=== PATIENT | female | born 1945 | race American Indian/Alaskan Native ===

== ENCOUNTER 2018-01-28 14:34 | Emergency (ER) | payer MEDICARE ==
--- NOTE | 2018-01-28 14:47 | Emergency Department Report ---
ED Neuro Deficit HPI - General Stated Complaint: POSS STROKE Time Seen by Provider: 01/28/18 14:40 Source: patient, family, EMS - History of Present Illness Initial Comments: Patient is 72 years old female with history of multiple strokes before. Patient brought to the emergency department via EMS as a code stroke. Symptoms started approximately 1330 this afternoon while patient is getting her nails done. Family stated that the patient started shaking and sweating and drooling saliva from her mouth with right facial drooping. Upon arrival to the emergency room patient is alert and oriented 3 was mild right facial drooping and saliva also. -: Sudden Time: 13:30 Location: speech, right face, altered Presenting Symptoms: Present: Facial Droop/Numbness, Altered Mental Status History of same: Yes - Related Data Allergies/Adverse Reactions: Allergies Allergy/AdvReac Type Severity Reaction Status Date / Time No Known Allergies Allergy Unverified 01/28/18 14:39 ED Review of Systems ROS: Stated complaint: POSS STROKE Other details as noted in HPI Comment: All other systems reviewed and negative Constitutional: denies: chills, fever Respiratory: denies: cough, orthopnea, shortness of breath, SOB with exertion Cardiovascular: denies: chest pain, palpitations, dyspnea on exertion Gastrointestinal: denies: abdominal pain, nausea, vomiting Neurological: denies: headache, numbness, paresthesias ED Neuro Physical Exam - General General appearance: alert, in no apparent distress Suspected Stroke: Yes - Head Head exam: Present: atraumatic, normocephalic, normal inspection - Eye Eye exam: Present: normal appearance, PERRL - ENT ENT exam: Present: normal exam, normal orophraynx, mucous membranes moist - Neck Neck exam: Present: normal inspection, full ROM. Absent: tenderness, meningismus, lymphadenopathy, thyromegaly - Respiratory Respiratory exam: Present: normal lung sounds bilaterally. Absent: respiratory distress, wheezes, rales, rhonchi, stridor, accessory muscle use, decreased breath sounds, prolonged expiratory - Cardiovascular Cardiovascular Exam: Present: regular rate, normal rhythm, normal heart sounds - GI/Abdominal GI/Abdominal exam: Present: soft, normal bowel sounds. Absent: distended, tenderness, guarding, rebound, rigid, organomegaly, mass, bruit, pulsatile mass - Extremities Exam Extremities exam: Present: normal inspection, full ROM, normal capillary refill - Back Exam Back exam: Present: normal inspection, full ROM. Absent: tenderness, CVA tenderness (R), CVA tenderness (L) - Neurological Exam Neurological exam: Present: alert, oriented X3, CN II-XII intact - NIHSS Assessment Interval: Baseline 1a. Level of Consciousness: alert 1b. LOC Questions: answers correctly 1c. LOC Commands: performs tasks correctly 2. Best Gaze: normal 3. Visual: no visual loss 4. Facial Palsy: minor paralysis 5b. Motor Arm Right: no drift 5a. Motor Arm Left: no drift 6a. Motor Leg Left: no drift 6b. Motor Leg Right: no drift 7. Limb Ataxia: absent 8. Sensory: normal 9. Best Language: no aphasia 10. Dysarthria: normal 11. Extinction/Inattention: no abnormality Total Score: 1 Stroke Severity: Minor Stroke - Skin Skin exam: Present: warm, intact, normal color ED Course - Reevaluation(s) Reevaluation #1: 01/28/18 15:02 I discussed the patient is Dr. Bravo, neurologist on-call, who examined the patient in the ER. He stated that patient is not a TPA candidate and this is most likely a TIA and patient is to be admitted for stroke workup. - Lab Data Result diagrams: 01/28/18 14:56 01/28/18 14:56 Lab Results 01/28/18 01/28/18 01/28/18 Range/Units 14:56 14:56 14:56 WBC 14.1 H (4.5-11.0) K/mm3 RBC 4.76 (3.65-5.03) M/mm3 Hgb 12.6 (10.1-14.3) gm/dl Hct 40.5 (30.3-42.9) % MCV 85 (79-97) fl MCH 27 L (28-32) pg MCHC 31 (30-34) % RDW 18.3 H (13.2-15.2) % Plt Count 383 (140-440) K/mm3 Lymph % (Auto) 22.0 (13.4-35.0) % Bowman % (Auto) 6.2 (0.0-7.3) % Eos % (Auto) 0.9 (0.0-4.3) % Baso % (Auto) 1.1 (0.0-1.8) % Lymph # 3.1 (1.2-5.4) K/mm3 Bowman # 0.9 H (0.0-0.8) K/mm3 Eos # 0.1 (0.0-0.4) K/mm3 Baso # 0.2 H (0.0-0.1) K/mm3 Seg Neutrophils % 69.8 (40.0-70.0) % Seg Neutrophils # 9.8 H (1.8-7.7) K/mm3 PT 23.7 H (12.2-14.9) Sec. INR 1.97 H (0.87-1.13) Thrombin Time 18.2 (15.1-19.6) Sec. Sodium 139 (137-145) mmol/L Potassium 3.6 (3.6-5.0) mmol/L Chloride 98.5 (98-107) mmol/L Carbon Dioxide 21 L (22-30) mmol/L Anion Gap 23 mmol/L BUN 21 H (7-17) mg/dL Creatinine 0.6 L (0.7-1.2) mg/dL Estimated GFR > 60 ml/min BUN/Creatinine Ratio 35 % Glucose 101 H (65-100) mg/dL Calcium 9.2 (8.4-10.2) mg/dL - EKG Data -: EKG Interpreted by Fl EKG shows normal: sinus rhythm Rate: normal Interpretation: no acute changes - Radiology Data Radiology results: report reviewed Referring Physician: LUNA HICKMAN Patient Name: YNES ANDERSON Date of : 1945 Sex: Female Report Date: 2018-01-28 Report Status: Finalized Findings [facility] [address] [place] [address] Cat Scan Report Signed Patient: YNES ANDERSON MR#: [id number] : 1945 Acct:[id number] Age/Sex: 72 / F ADM Date: 01/28/18 Loc: ED Attending Dr: Ordering Physician: LUNA HICKMAN Date of Service: 01/28/18 Procedure(s): CT head/brain wo con Accession Number(s): [id number] cc: LUNA HICKMAN FINAL REPORT EXAM: CT HEAD/BRAIN WO CON HISTORY: neuro deficits lt; 6hrs or sx present upon awakening TECHNIQUE: CT examination of the head without IV contrast PRIORS: None. FINDINGS: No acute air-fluid level visualized in the included air-filled sinuses. Bone windows demonstrate no acute fracture. There is ventricular and sulcal prominence compatible with global cerebrocortical atrophy. Low attenuation regions in the cerebral white matter, while nonspecific, are present and usually attributed to chronic ischemic gliosis. It can occur secondary to the normal aging process, hypertension, or arterial sclerotic vascular disease. The differential includes demyelination in the appropriate clinical setting. The brain contains no mass, mass effect, hemorrhage, or acute infarct. There is no extra-axial intracranial bleed or brain bleed. There is no midline shift. IMPRESSION: No acute CVA, intracranial bleed, or brain mass [employer] windows desktop support verbally gave report to Dr Hickman on 01/28/2018 at 2:53 p.m. EST Transcribed By: CORBIN Dictated By: YEE ZAMBRANO MD Electronically Authenticated By: YEE ZAMBRANO MD Signed Date/Time: 01/28/181456 DD/ 56 TD/TT: 01/28/181456 - Medical Decision Making Discussed the patient is Dr. Pena, he agreed to admit the patient to service. Critical care attestation.: If time is entered above; I have spent that time in minutes in the direct care of this critically ill patient, excluding procedure time. ED Disposition Clinical Impression: Stroke, TIA (transient ischemic attack) Disposition: OP ADMIT IP TO THIS HOSP Is pt being admited?: Yes Condition: Stable Referrals: PRIMARY CARE, [Primary Care Provider] - 3-5 Days
--- NOTE | 2018-01-28 15:01 | Cat Scan Report ---
FINAL REPORT EXAM: CT HEAD/BRAIN WO CON HISTORY: neuro deficits < 6hrs or sx present upon awakening TECHNIQUE: CT examination of the head without IV contrast PRIORS: None. FINDINGS: No acute air-fluid level visualized in the included air-filled sinuses. Bone windows demonstrate no acute fracture. There is ventricular and sulcal prominence compatible with global cerebrocortical atrophy. Low attenuation regions in the cerebral white matter, while nonspecific, are present and usually attributed to chronic ischemic gliosis. It can occur secondary to the normal aging process, hypertension, or arterial sclerotic vascular disease. The differential includes demyelination in the appropriate clinical setting. The brain contains no mass, mass effect, hemorrhage, or acute infarct. There is no extra-axial intracranial bleed or brain bleed. There is no midline shift. IMPRESSION: No acute CVA, intracranial bleed, or brain mass [employer] business support coordinator verbally gave report to Dr Stone on 01/28/2018 at 2:53 p.m. EST
[2018-01-28 15:30] LABS: Basophils # (Auto) 0.2 K/mm3 (0.0-0.1); Basophils % (Auto) 1.1 % (0.0-1.8); Eosinophils # (Auto) 0.1 K/mm3 (0.0-0.4); Eosinophils % (Auto) 0.9 % (0.0-4.3); Hematocrit 40.5 % (30.3-42.9); Hemoglobin 12.6 gm/dl (10.1-14.3); Lymphocytes # (Auto) 3.1 K/mm3 (1.2-5.4); Mean Corpuscular HGB Conc 31 % (30-34); Mean Corpuscular Hemoglobin 27 pg (28-32); Mean Corpuscular Volume 85 fl (79-97); Monocytes # (Auto) 0.9 K/mm3 (0.0-0.8); Monocytes % (Auto) 6.2 % (0.0-7.3); Platelet Count 383 K/mm3 (140-440); Red Blood Count 4.76 M/mm3 (3.65-5.03); Red Cell Distribution Width 18.3 % (13.2-15.2)
[2018-01-28 15:35] LABS: INR 1.97 (0.87-1.13); Thrombin Time 18.2 Sec. (15.1-19.6)
[2018-01-28 15:41] LABS: BUN/Creatinine Ratio 35; Blood Urea Nitrogen 21 mg/dL (7-17); Calcium 9.2 mg/dL (8.4-10.2); Hemolysis Index 10
[2018-01-28 18:13] VITALS: BP 127/71
--- NOTE | 2018-01-29 06:39 | Consultation ---
HISTORY OF PRESENT ILLNESS: This is a 72-year-old female who presents to the Emergency Room of [facility] as an emergency admission. This patient presents about 30 minutes prior to admission, she developed drooling, difficulty with balance and leaning over to the right. She has difficulty expressing herself at that point. She has had a known history of at least having 4 prior strokes. She was transferred to the hospital with a stroke alert. She has a prior medical history of being under management of her hypertension, diabetes. She was seen by the Emergency Room physician. He and I had a discussion; the patient's neurological status had subsequently improved and her stroke scale was 0. I have reviewed her CT scan personally. She has marked degree of white matter changes with evidence of ischemic white matter changes of both the right and left cerebral hemispheres bilaterally, frontally, and posteriorly, but also over the right than the left. I do not see an acute bleed. There is no mass effect, no swelling, no evidence of any prior tumors and I do not see any features that would suggest acute stroke. At this point, I do not see any acute bleed. Given the fact that the patient has had improvement of her neurological status, she clearly is not a TPA candidate. Also, she has had recent strokes, which are exclusion factors and I would not feel that TPA with the safe alternative at this point given the history of a recent stroke and appearance on the CT scan of probably recent acute stroke, which is subacute chronic stage. Examination shows no evidence of any hemiparesis. Cranial nerves are intact. She is slightly confused. It is a little difficulty to speech, orientation. Vital signs are stable. Blood pressure 115/80, pulse rate 80, respirations 18. IMPRESSION: Transient ischemic attack subsequent to acute stroke previously, prior history of hypertension, diabetes, history of multiple strokes. I would recommend admission, getting an MRI, full stroke workup including echocardiogram, carotid artery ultrasound, review of old records. JOB# [id number] DANNY/DANIEL
--- NOTE | 2018-01-29 08:35 | Event Note ---
Date: 01/28/18 Passed out at nail place after trauma to the nail bed Patient had extensive work up for recurrent syncopal episodes--Including event monitor Daughter feels it is vasovagal with which I concur Dis Dx Syncope-sec to vasovagal response to pain Cont Home meds F/u with pcp/Neuro (Patient has a neurologist))
--- NOTE | 2018-01-29 11:47 | Consultation ---
History of Present Illness Consult date: 01/29/18 History of present illness: please see my extensive dictated note from tuesday Medications and Allergies Allergies Allergy/AdvReac Type Severity Reaction Status Date / Time No Known Allergies Allergy Unverified 01/28/18 14:39 Physical Examination - Vital Signs Vital Signs: Vital Signs Temp Pulse Resp Pulse Ox 98.8 F 68 22 99 01/28/18 14:39 01/28/18 14:39 01/28/18 14:39 01/28/18 14:39 - Assessment Assessment Interval: Baseline - Level of Consciousness 1a. Level of Consciousness: alert - LOC Questions 1b. LOC Questions: answers correctly - LOC Command 1c. LOC Commands: performs tasks correctly - Best Gaze 2. Best Gaze: normal - Visual 3. Visual: no visual loss - Facial Palsy 4. Facial Palsy: minor paralysis - Motor Arm 5b. Motor Arm Right: no drift - Motor Leg 6a. Motor Leg Left: no drift - Limb Ataxia 7. Limb Ataxia: absent - Sensory 8. Sensory: normal - Best Language 9. Best Language: no aphasia - Dysarthria 10. Dysarthria: normal - Extinction and Inattention 11. Extinction/Inattention: no abnormality Results - Laboratory Findings CBC and BMP: 01/28/18 14:56 01/28/18 14:56 Abnormal Lab Findings: Abnormal Labs 01/28/18 01/28/18 01/28/18 14:56 14:56 14:56 WBC 14.1 H MCH 27 L RDW 18.3 H Gratiot # 0.9 H Baso # 0.2 H Seg Neutrophils # 9.8 H PT 23.7 H INR 1.97 H APTT 92.0 H* Carbon Dioxide 21 L BUN 21 H Creatinine 0.6 L Glucose 101 H
== END 2018-01-28 18:10 | disposition admitted as inpatient to this hospital (09) ==
LOC: ED 14:34 → UNDOADMIN 18:24 → 4A 18:24 → UNDODISIN 01-30 11:10
DX: G45.9 Transient cerebral ischemic attack, unspecified (principal); I10 Essential (primary) hypertension; E11.9 Type 2 diabetes mellitus without complications; R55 Syncope and collapse
CPT/HCPCS: 36415; 70450; 80048; 84484; 85025; 85610; 85670; 85730; 93005; 93010

== ENCOUNTER 2018-03-27 11:27 | Inpatient (IN) | payer MEDICARE ==
[2018-03-27] MEDS ORDERED: NACL 0.9% 1000 ML 1,000 ML IV ONE (12:48)
[2018-03-27 13:33] LABS: Hemoglobin 12.5 gm/dl (10.1-14.3); Mean Corpuscular HGB Conc 31 % (30-34); Mean Corpuscular Hemoglobin 26 pg (28-32); Mean Corpuscular Volume 85 fl (79-97); Platelet Count 386 K/mm3 (140-440); Red Cell Distribution Width 19.2 % (13.2-15.2)
[2018-03-27 13:34] LABS: Hematocrit 40.7 % (30.3-42.9)
--- NOTE | 2018-03-27 13:39 | Emergency Department Report ---
ED General Adult HPI - General Chief complaint: Syncope Stated complaint: SYNCOPE Time Seen by Provider: 03/27/18 12:45 Source: patient, family, EMS Mode of arrival: Stretcher Limitations: No Limitations - History of Present Illness Initial comments: 72-year-old female states she felt weak while sitting in a chair. She felt as though she was going to pass out. She started to experience lower abdominal pain and ultimately did have diarrhea. She went to the bathroom and sat on the commode. Then she her to the floor where her daughter witnessed her syncopal episode. They state that she has been diagnosed as having vasovagal syncope. However, the daughter clearly describes pill-rolling upward eye deviation and tonic if not clonic upper extremity arm movement. The daughter stated that she was "unconscious" she did have good respiratory effort and no apparent color change. Apparently she has had episodes like this in the past. She has not previously been diagnosed with seizures. However in 2017 she had a stroke causing a left hemiparesis. She has also had a previous cardiac catheterization which showed no need for cardiac stent the daughter states. She also states that she has had leg edema after the cardiac catheterization. The patient has returned to her neurological baseline. He complained of some lower abdominal discomfort. She is not nauseated now but had some nausea in the field. She did not vomit. She was not observed to have any bloody diarrhea. She was found by paramedics to have an initial systolic blood pressure of 86. -: Gradual Consistency: now resolved Associated Symptoms: denies other symptoms (some lower abdominal pain) - Related Data Allergies Allergy/AdvReac Type Severity Reaction Status Date / Time No Known Allergies Allergy Unverified 01/28/18 14:39 ED Review of Systems ROS: Stated complaint: SYNCOPE Other details as noted in HPI Constitutional: denies: chills, fever Eyes: denies: eye pain, eye discharge, vision change ENT: denies: ear pain, throat pain Respiratory: denies: cough, shortness of breath, wheezing Cardiovascular: syncope. denies: chest pain, palpitations Endocrine: no symptoms reported Gastrointestinal: abdominal pain, diarrhea. denies: nausea Genitourinary: denies: urgency, dysuria, discharge Musculoskeletal: denies: back pain, joint swelling, arthralgia Skin: denies: rash, lesions Neurological: as per HPI. denies: headache, weakness, paresthesias Psychiatric: denies: anxiety, depression Hematological/Lymphatic: denies: easy bleeding, easy bruising ED Past Medical Hx - Past Medical History Previous Medical History?: Yes Hx Hypertension: Yes Hx CVA: Yes Additional medical history: CVA x2, Afib. anxiety, high cholesterol - Surgical History Past Surgical History?: Yes Hx Cholecystectomy: Yes Additional Surgical History: hysterectomy, esophageal - Social History Smoking Status: Never Smoker ED Physical Exam - General Limitations: No Limitations General appearance: alert, in no apparent distress - Head Head exam: Present: atraumatic, normocephalic - Eye Eye exam: Present: normal appearance, PERRL, EOMI. Absent: scleral icterus - ENT ENT exam: Present: mucous membranes moist - Neck Neck exam: Present: normal inspection. Absent: tenderness, meningismus - Respiratory Respiratory exam: Present: normal lung sounds bilaterally. Absent: respiratory distress - Cardiovascular Cardiovascular Exam: Present: regular rate, normal rhythm. Absent: systolic murmur, diastolic murmur, rubs, gallop - GI/Abdominal GI/Abdominal exam: Present: soft, tenderness (mild discomfort to palpation), normal bowel sounds. Absent: distended, guarding, rebound, rigid - Extremities Exam Extremities exam: Present: normal inspection - Back Exam Back exam: Present: normal inspection - Neurological Exam Neurological exam: Present: alert, oriented X3, CN II-XII intact. Absent: motor sensory deficit - Psychiatric Psychiatric exam: Present: normal affect, normal mood - Skin Skin exam: Present: warm, dry, intact, normal color. Absent: rash ED Course Vital Signs 03/27/18 03/27/18 03/27/18 11:22 11:30 11:32 Temperature 97.7 F Pulse Rate 68 67 Respiratory 28 H 24 Rate Blood Pressure 114/64 114/64 114/64 O2 Sat by Pulse 95 94 Oximetry 03/27/18 03/27/18 03/27/18 12:00 12:30 13:00 Temperature Pulse Rate 68 70 73 Respiratory 25 H 25 H 16 Rate Blood Pressure 117/65 117/64 124/65 O2 Sat by Pulse 99 96 98 Oximetry 03/27/18 03/27/18 03/27/18 13:30 14:00 14:41 Temperature Pulse Rate 68 75 Respiratory 19 16 Rate Blood Pressure 121/70 111/71 111/71 O2 Sat by Pulse 97 97 92 Oximetry - Reevaluation(s) Reevaluation #2: CT studies were normal. I discussed the case with Dr. Pena. It would appear that the patient had a hypotensive episode. It would also appear that she had a subsequent seizure. I discussed giving Keppra to the patient with Dr. Pena who agreed. The patient does have risks for an underlying seizure focus and she 's had a CVA in 2017. It did sound very much like a seizure. I do not think the patient is septic. Dr. Pena concurred and did not want to provide intravenous antibiotics. 03/27/18 15:09 ED Medical Decision Making - Lab Data Result diagrams: 03/27/18 13:20 03/27/18 13:20 Laboratory Results - last 24 hr 03/27/18 03/27/18 03/27/18 13:20 13:20 13:20 WBC 14.6 H RBC 4.80 Hgb 12.5 Hct 40.7 MCV 85 MCH 26 L MCHC 31 RDW 19.2 H Plt Count 386 PT 20.4 H INR 1.68 H APTT 87.8 H* D-Dimer 774.21 H Sodium 144 Potassium 3.9 Chloride 104.6 Carbon Dioxide 26 Anion Gap 17 BUN 16 Creatinine 0.8 Estimated GFR > 60 BUN/Creatinine Ratio 20 Glucose 121 H Calcium 9.1 Magnesium Total Bilirubin AST ALT Alkaline Phosphatase Total Creatine Kinase CK-MB (CK-2) CK-MB (CK-2) Rel Index Troponin T < 0.010 NT-Pro-B Natriuret Pep Total Protein Albumin Albumin/Globulin Ratio 03/27/18 13:20 WBC RBC Hgb Hct MCV MCH MCHC RDW Plt Count PT INR APTT D-Dimer Sodium Potassium Chloride Carbon Dioxide Anion Gap BUN Creatinine Estimated GFR BUN/Creatinine Ratio Glucose Calcium Magnesium 2.60 H Total Bilirubin 0.60 AST 21 ALT 17 Alkaline Phosphatase 87 Total Creatine Kinase 34 CK-MB (CK-2) 1.1 CK-MB (CK-2) Rel Index 3.2 Troponin T NT-Pro-B Natriuret Pep 32.61 Total Protein 6.7 Albumin 3.7 L Albumin/Globulin Ratio 1.2 - EKG Data EKG shows normal: sinus rhythm, axis, intervals, QRS complexes Rate: normal - EKG Data Interpretation: other (inverted T waves are present in the high lateral and anterolateral leads.) - Radiology Data Radiology results: report reviewed Critical care attestation.: If time is entered above; I have spent that time in minutes in the direct care of this critically ill patient, excluding procedure time. ED Disposition Clinical Impression: Hypotensive episode, Seizure Disposition: OP ADMIT IP TO THIS HOSP Is pt being admited?: Yes Does the pt Need Aspirin: Yes Condition: Stable Referrals: PRIMARY CARE, [Primary Care Provider] - 3-5 Days Time of Disposition: 15:11
[2018-03-27 13:46] LABS: BUN/Creatinine Ratio 20; Blood Urea Nitrogen 16 mg/dL (7-17); Calcium 9.1 mg/dL (8.4-10.2); Creatine Kinase MB 1.1 ng/mL (0.0-4.0); Hemolysis Index 6
[2018-03-27 13:48] LABS: INR 1.68 (0.87-1.13)
[2018-03-27 13:49] LABS: Alanine Aminotransferase 17 units/L (7-56); Albumin 3.7 g/dL (3.9-5)
[2018-03-27 13:53] LABS: Bilirubin,Direct < 0.2 mg/dL (0-0.2); Partial Thromboplastin Time 87.8 Sec. (24.2-36.6)
[2018-03-27 14:02] LABS: Basophils % (Manual) 0 % (0.0-1.8); Total Cells Counted 100
[2018-03-27 14:03] LABS: Eosinophils % (Manual) 0 % (0.0-4.3); Ovalocytes Few; Schistocytes Few
[2018-03-27 14:04] LABS: Anisocytosis 1+; Poikilocytosis 1+
--- NOTE | 2018-03-27 14:14 | XRay Report ---
AP CHEST: HISTORY: Hypertension No comparison. Normal heart and mediastinal structures. Normal pulmonary vascularity. The left hemidiaphragm is mildly elevated and contains subtle linear calcifications which is probably related to previous pleural insult such as a complicated pleural effusion. The lungs are clear otherwise. No pneumothorax. The bony structures are intact. IMPRESSION: No acute process. Mildly elevated left hemidiaphragm with subtle calcifications. See above.
--- NOTE | 2018-03-27 15:01 | Cat Scan Report ---
CT HEAD WITHOUT CONTRAST: HISTORY: Syncope. TECHNIQUE: Sequential CT images without contrast. FINDINGS: Images obtained show bilateral prominence of the sulci and ventricles. There are no abnormal intra- or extra-axial blood or fluid collections. There are no focal masses or evidence of mass effect. The love white matter differentiation appears within normal limits. Regions of periventricular decreased attenuation are consistent with microangiopathic ischemic disease. The posterior fossa structures including the fourth ventricle, cerebellum, and brainstem appear normal. IMPRESSION: Evidence of atrophy and microangiopathic ischemic disease. No acute intracranial process noted. No significant change since 01/28/18.
--- NOTE | 2018-03-27 15:02 | Cat Scan Report ---
CTA CHEST: HISTORY: Syncope. COMPARISON: none. TECHNIQUE: Helical CT in 1.25mm intervals following IV contrast. Pulmonary embolus protocol. Sagittal and coronal reformatted images. Rotational MIP images. FINDINGS: Contrast bolus is satisfactory. No pulmonary embolus is identified. Thyroid gland: Normal. Tracheobronchial tree: Normal. Esophagus: Normal. Heart: Normal. Pericardium: Normal. Mediastinum: Normal. Lung Song: Normal. Pleural Spaces: Normal. Musculoskeletal: Intact. Mild scoliosis is noted. IMPRESSION: No evidence for pulmonary embolus. No acute cardiopulmonary process is identified.
--- NOTE | 2018-03-27 15:04 | Cat Scan Report ---
CT ABDOMEN PELVIS WITH CONTRAST: HISTORY: Lower abdominal. COMPARISON: none. TECHNIQUE: Helical CT in 1.25mm intervals following IV contrast. Sagittal and coronal reconstructions. FINDINGS: Liver: Normal. Biliary system: Cholecystectomy. No biliary dilatation. Pancreas: Normal. Spleen: Normal. Kidneys/ureters/bladder: Within normal limits. 2 cm cyst at the superior pole of the left kidney is noted. Adrenal glands: Normal. Aorta: Normal. Intestines: Within normal limits given no oral contrast was administered. Appendix: Normal. Pelvic viscera: Hysterectomy. Ascites: None. Adenopathy: None. Musculoskeletal: Intact. Thoracolumbar spondylosis is noted. IMPRESSION: No acute process is identified in the abdomen or pelvis. Surgical changes as described.
[2018-03-27] MEDS ORDERED: KEPPRA 1,000 MG/NS 0.75% 100ML 1,000 MG/100 ML BAG IV ONE (15:14)
[2018-03-27 16:49] LABS: Bilirubin,Urine NEG (Negative); Blood,Urine NEG (Negative); Color,Urine Yellow (Yellow); Mucus,Urine FEW /HPF; Protein,Urine <15 mg/dL mg/dL (Negative); Urobilinogen,Urine < 2.0 mg/dL (<2.0)
[2018-03-27] MEDS ORDERED: PNEUMOVAX 23 IM ONE (18:00)
--- NOTE | 2018-03-27 22:01 | Event Note ---
Date: 03/27/18
[2018-03-27] MEDS ORDERED: TYLENOL PO PRN (22:14)
[2018-03-27] MEDS ORDERED: ZOFRAN IV PRN (22:14)
[2018-03-27] MEDS ORDERED: PERCOCET 5/325 PO PRN (22:14)
[2018-03-27] MEDS ORDERED: MORPHINE IV PRN (22:14)
[2018-03-27] MEDS ORDERED: SODIUM CHLORIDE FLUSH SYRINGE 10 ML IV PRN (22:14)
[2018-03-27] MEDS ORDERED: NON-FORMULARY (Metoprolol 25 MG) PO SCH (22:15)
--- NOTE | 2018-03-27 22:40 | History and Physical Report ---
CHIEF COMPLAINT: Passed out when she was in the bathroom. HISTORY OF PRESENT ILLNESS: A 72-year-old female felt weak while sitting in a chair. She thought she was going to pass out. She had some abdominal pain and loose stools, went to the bathroom and sat on the commode. Then, she passed out and the daughter witnessed a syncopal episode. After the syncopal episode, the patient had a upward eye deviation and tonics upper extremity movement. No clonic movements. The patient was apparently unconscious for at least a minute or two. The patient had similar episodes in the past and was diagnosed with syncope and seizures. 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 Previous cardiac catheterization, no significant blockage present. The patient has come back to a normal state. No increased weakness. PAST MEDICAL HISTORY: Significant for hypertension, cerebrovascular accident x 2 with a slight left-sided weakness present. No sensory loss. Anxiety and high cholesterol. PAST SURGICAL HISTORY: Cholecystectomy, hysterectomy, and esophageal surgery. SOCIAL HISTORY: Does not smoke. FAMILY HISTORY: Hypertension. REVIEW OF SYSTEMS: Significant for left-sided numbness and left-sided tonic movements, which have resolved completely. Also, syncope. Doubtful seizures. Otherwise, review of systems is essentially negative. A 14-point review of systems done. PHYSICAL EXAMINATION: GENERAL: Elderly female, cooperative during examination, states that she does not feel any weakness in the left or right lower and upper and right lower and right upper extremities. VITAL SIGNS: Significant for blood pressure of 133/79, temperature is 97.8, pulse is 78, sats are 99%. HEENT: Unremarkable. Pupils equal and reactive. NECK: Supple, no lymphadenopathy, no thyromegaly. LUNGS: Clear to auscultation and percussion. Good air entry. CARDIOVASCULAR: S1, S2 heard. No gallop, no murmur, no rub. Apical impulse in left fifth intercostal space and midclavicular line. ABDOMEN: Soft and benign. No hepatosplenomegaly. No guarding, no rigidity. Hernial orifices are normal. EXTREMITIES: Good pedal pulses. No pedal edema. CENTRAL NERVOUS SYSTEM: Alert and oriented x 4, nonfocal exam. Strength is normal in both left and right lower extremities and upper extremities. SKIN: Normal. LABORATORY DATA: Significant for white count of 14,600, H and H is 12.5 and 40.7, platelet count is 386,000. Repeat protime is 1.68. Lactic acid is 2.6, but the next one was normal at 1.7. Sodium is 144, potassium is 3.9. Albumin is 3.7. Urine normal, expect slightly high specific gravity of 1.051. CT of the head shows atrophy and microangiopathic ischemic disease, no acute intracranial process noted. Chest x-ray, mildly elevated left diaphragm with subtle calcifications. No evidence for pulmonary embolism, no acute cardiopulmonary processes identified on the CTA chest. EKG, normal sinus rhythm. No acute ST-T wave changes. ASSESSMENT AND PLAN: 1. Transient ischemic attack. TIA workup initiated. The patient to get MRI/MRA and also echocardiogram. 2. Hypertension. Continue losartan 50 mg once a day. 3. History of cerebrovascular accident. Supportive care and Plavix if necessary. 4. Atrial fibrillation. The patient on Xarelto. 5. Hypertension. Continue isosorbide mononitrate, metoprolol, hydrochlorothiazide and triamterene. 6. Gastroesophageal reflux disease. Continue pantoprazole. 7. Hyperlipidemia. Continue atorvastatin. 8. Anticoagulation. The patient on Xarelto. 9. Deep venous thrombosis prophylaxis, Lovenox 40 mg subcutaneous daily. JOB# [id number] ROBERT/NTS
[2018-03-27] MEDS: LOPRESSOR PO SCH (23:08)
[2018-03-27] MEDS: XARELTO PO SCH (23:24)
[2018-03-28 08:50] LABS: Alanine Aminotransferase 14 units/L (7-56); Albumin 3.6 g/dL (3.9-5); BUN/Creatinine Ratio 25; Blood Urea Nitrogen 15 mg/dL (7-17); Calcium 8.7 mg/dL (8.4-10.2); Hemolysis Index 20
[2018-03-28 08:53] LABS: Hematocrit 36.3 % (30.3-42.9); Hemoglobin 11.7 gm/dl (10.1-14.3); Mean Corpuscular HGB Conc 32 % (30-34); Mean Corpuscular Hemoglobin 27 pg (28-32); Mean Corpuscular Volume 82 fl (79-97); Platelet Count 353 K/mm3 (140-440); Red Blood Count 4.41 M/mm3 (3.65-5.03); Red Cell Distribution Width 18.2 % (13.2-15.2)
[2018-03-28] MEDS ORDERED: LEXISCAN IV ONE ×2 (09:10→09:12)
[2018-03-28] MEDS ORDERED: TRIAMTERENE 37.5 MG PO SCH (10:00)
[2018-03-28] MEDS ORDERED: NON-FORMULARY (Hctz 25 MG) PO SCH (10:00)
[2018-03-28] MEDS ORDERED: NON-FORMULARY (Xarelto 20 MG) PO SCH (10:00)
[2018-03-28] MEDS ORDERED: PROTONIX PO SCH (10:00)
[2018-03-28] MEDS ORDERED: NON-FORMULARY (Folic Acid 1 MG) PO SCH (10:00)
[2018-03-28] MEDS ORDERED: IMDUR PO SCH (10:00)
[2018-03-28] MEDS ORDERED: NON-FORMULARY (Isosorbide Mononitrate 60 MG) PO SCH (10:00)
[2018-03-28] MEDS ORDERED: NON-FORMULARY (Omeprazole 40 MG) PO SCH (10:00)
[2018-03-28] MEDS ORDERED: MAXZIDE-25 PO SCH (10:00)
[2018-03-28] MEDS ORDERED: NON-FORMULARY (Pantoprazole 40 MG) PO SCH (10:00)
[2018-03-28] MEDS ORDERED: FOLVITE PO SCH (10:00)
[2018-03-28] MEDS ORDERED: NON-FORMULARY (Atorvastatin 20 MG) PO SCH (10:00)
[2018-03-28 11:09] LABS: Basophils % (Manual) 0 % (0.0-1.8); Total Cells Counted 100
[2018-03-28 11:10] LABS: Anisocytosis 1+; Ovalocytes Few; Poikilocytosis 1+
[2018-03-28] MEDS ORDERED: PNEUMOVAX 23 IM ONE (11:59)
--- NOTE | 2018-03-28 17:29 | Progress Note ---
Assessment and Plan Assessment and plan: 72F who pw presyncope,after having loose stools pmh htn, cva with L residual weakness TIA ruled out, patient did not have any focal findings, clinical presentation inconsistent with TIA Presyncope; occurred after loose stools, likely vasovagal and due to dehydration cardiac Afib with hypercoaguable state, HTN, HLD, hx of CVA cont home meds, fully anticoagulated with xarelto GERD; cont PPI History Interval history: Review of systems Constitutional: No fevers, no malaise, no joint pains CVS: No chest pain, no orthopnea, no dyspnea on exertion, no pedal edema GI: No abdominal pain, no diarrhea, no vomiting, no constipation Respiratory: No shortness of breath, no wheezing, no coughing Hospitalist Physical - Physical exam Narrative exam: General.: Appears well, no distress, nontoxic HEENT: Moist mucous membranes, extraocular muscles intact, no lymphadenopathy Neck: supple Cardiac: S1-S2 heard Lungs: clear to auscultation bilaterally Abdomen: soft , nontender, nondistended, bowel sounds positive Extremities: no edema clubbing or cyanosis Skin: no rash or lesions Neurologic: left hemiparesis, mild Psych: appropriate behavior, appropriate mood, corporative, judgment intact - Constitutional Vitals: Temp Pulse Resp BP Pulse Ox 98.7 F 79 16 120/61 95 03/28/18 14:35 03/28/18 14:35 03/28/18 15:17 03/28/18 14:35 03/28/18 14:35 Results - Labs CBC & Chem 7: 03/28/18 07:55 03/28/18 07:52 Labs: Laboratory Last Values WBC 10.6 K/mm3 (4.5-11.0) 03/28/18 07:55 RBC 4.41 M/mm3 (3.65-5.03) 03/28/18 07:55 Hgb 11.7 gm/dl (10.1-14.3) 03/28/18 07:55 Hct 36.3 % (30.3-42.9) 03/28/18 07:55 MCV 82 fl (79-97) 03/28/18 07:55 MCH 27 pg (28-32) L 03/28/18 07:55 MCHC 32 % (30-34) 03/28/18 07:55 RDW 18.2 % (13.2-15.2) H 03/28/18 07:55 Plt Count 353 K/mm3 (140-440) 03/28/18 07:55 Add Manual Diff Complete 03/28/18 07:55 Total Counted 100 03/28/18 07:55 Seg Neuts % (Manual) 81.0 % (40.0-70.0) H 03/28/18 07:55 Band Neutrophils % 0 % 03/28/18 07:55 Lymphocytes % (Manual) 12.0 % (13.4-35.0) L 03/28/18 07:55 Reactive Lymphs % (Man) 0 % 03/28/18 07:55 Monocytes % (Manual) 6.0 % (0.0-7.3) 03/28/18 07:55 Eosinophils % (Manual) 1.0 % (0.0-4.3) 03/28/18 07:55 Basophils % (Manual) 0 % (0.0-1.8) 03/28/18 07:55 Metamyelocytes % 0 % 03/28/18 07:55 Myelocytes % 0 % 03/28/18 07:55 Promyelocytes % 0 % 03/28/18 07:55 Blast Cells % 0 % 03/28/18 07:55 Nucleated RBC % Not Reportable 03/28/18 07:55 Seg Neutrophils # Man 8.6 K/mm3 (1.8-7.7) H 03/28/18 07:55 Band Neutrophils # 0.0 K/mm3 03/28/18 07:55 Lymphocytes # (Manual) 1.3 K/mm3 (1.2-5.4) 03/28/18 07:55 Abs React Lymphs (Man) 0.0 K/mm3 03/28/18 07:55 Monocytes # (Manual) 0.6 K/mm3 (0.0-0.8) 03/28/18 07:55 Eosinophils # (Manual) 0.1 K/mm3 (0.0-0.4) 03/28/18 07:55 Basophils # (Manual) 0.0 K/mm3 (0.0-0.1) 03/28/18 07:55 Metamyelocytes # 0.0 K/mm3 03/28/18 07:55 Myelocytes # 0.0 K/mm3 03/28/18 07:55 Promyelocytes # 0.0 K/mm3 03/28/18 07:55 Blast Cells # 0.0 K/mm3 03/28/18 07:55 WBC Morphology Not Reportable 03/28/18 07:55 Hypersegmented Neuts Not Reportable 03/28/18 07:55 Hyposegmented Neuts Not Reportable 03/28/18 07:55 Hypogranular Neuts Not Reportable 03/28/18 07:55 Smudge Cells Not Reportable 03/28/18 07:55 Toxic Granulation Not Reportable 03/28/18 07:55 Toxic Vacuolation Not Reportable 03/28/18 07:55 Dohle Bodies Not Reportable 03/28/18 07:55 Pelger-Huet Anomaly Not Reportable 03/28/18 07:55 Geronimo Rods Not Reportable 03/28/18 07:55 Platelet Estimate Appears normal 03/28/18 07:55 Clumped Platelets Not Reportable 03/28/18 07:55 Plt Clumps, EDTA Not Reportable 03/28/18 07:55 Large Platelets Not Reportable 03/28/18 07:55 Giant Platelets Not Reportable 03/28/18 07:55 Platelet Satelliting Not Reportable 03/28/18 07:55 Plt Morphology Comment Not Reportable 03/28/18 07:55 RBC Morphology Not Reportable 03/28/18 07:55 Dimorphic RBCs Not Reportable 03/28/18 07:55 Polychromasia Not Reportable 03/28/18 07:55 Hypochromasia Not Reportable 03/28/18 07:55 Poikilocytosis 1+ 03/28/18 07:55 Anisocytosis 1+ 03/28/18 07:55 Microcytosis Not Reportable 03/28/18 07:55 Macrocytosis Not Reportable 03/28/18 07:55 Spherocytes Not Reportable 03/28/18 07:55 Pappenheimer Bodies Not Reportable 03/28/18 07:55 Sickle Cells Not Reportable 03/28/18 07:55 Target Cells Not Reportable 03/28/18 07:55 Tear Drop Cells Not Reportable 03/28/18 07:55 Ovalocytes Few 03/28/18 07:55 Helmet Cells Not Reportable 03/28/18 07:55 [place] Bodies Not Reportable 03/28/18 07:55 [place] Rings Not Reportable 03/28/18 07:55 [place] Cells Not Reportable 03/28/18 07:55 Bite Cells Not Reportable 03/28/18 07:55 Crenated Cell Not Reportable 03/28/18 07:55 Elliptocytes Few 03/28/18 07:55 Acanthocytes (Spur) Not Reportable 03/28/18 07:55 Rouleaux Not Reportable 03/28/18 07:55 Hemoglobin C Crystals Not Reportable 03/28/18 07:55 Schistocytes Not Reportable 03/28/18 07:55 Malaria parasites Not Reportable 03/28/18 07:55 Matt Bodies Not Reportable 03/28/18 07:55 Hem Pathologist Commnt No 03/28/18 07:55 PT 20.4 Sec. (12.2-14.9) H 03/27/18 13:20 INR 1.68 (0.87-1.13) H 03/27/18 13:20 APTT 87.8 Sec. (24.2-36.6) H* 03/27/18 13:20 D-Dimer 774.21 ng/mlDDU (0-234) H 03/27/18 13:20 Sodium 144 mmol/L (137-145) 03/28/18 07:52 Potassium 4.0 mmol/L (3.6-5.0) 03/28/18 07:52 Chloride 108.1 mmol/L (98-107) H 03/28/18 07:52 Carbon Dioxide 24 mmol/L (22-30) 03/28/18 07:52 Anion Gap 16 mmol/L 03/28/18 07:52 BUN 15 mg/dL (7-17) 03/28/18 07:52 Creatinine 0.6 mg/dL (0.7-1.2) L 03/28/18 07:52 Estimated GFR > 60 ml/min 03/28/18 07:52 BUN/Creatinine Ratio 25 % 03/28/18 07:52 Glucose 95 mg/dL (65-100) 03/28/18 07:52 Hemoglobin A1c 5.6 % (4-6) 03/27/18 22:35 Lactic Acid 1.70 mmol/L (0.7-2.0) 03/27/18 18:10 Calcium 8.7 mg/dL (8.4-10.2) 03/28/18 07:52 Magnesium 2.60 mg/dL (1.7-2.3) H 03/27/18 13:20 Total Bilirubin 0.60 mg/dL (0.1-1.2) 03/28/18 07:52 Direct Bilirubin < 0.2 mg/dL (0-0.2) 03/27/18 13:20 AST 17 units/L (5-40) 03/28/18 07:52 ALT 14 units/L (7-56) 03/28/18 07:52 Alkaline Phosphatase 82 units/L (35-129) 03/28/18 07:52 Total Creatine Kinase 34 units/L (30-135) 03/27/18 13:20 CK-MB (CK-2) 1.1 ng/mL (0.0-4.0) 03/27/18 13:20 CK-MB (CK-2) Rel Index 3.2 (0-4) 03/27/18 13:20 Troponin T < 0.010 ng/mL (0.00-0.029) 03/27/18 17:00 NT-Pro-B Natriuret Pep 32.61 pg/mL (0-900) 03/27/18 13:20 Total Protein 6.5 g/dL (6.3-8.2) 03/28/18 07:52 Albumin 3.6 g/dL (3.9-5) L 03/28/18 07:52 Albumin/Globulin Ratio 1.2 % 03/28/18 07:52 Urine Color Yellow (Yellow) 03/27/18 16:21 Urine Turbidity Clear (Clear) 03/27/18 16:21 Urine pH 7.0 (5.0-7.0) 03/27/18 16:21 Ur Specific [place] 1.051 (1.003-1.030) H 03/27/18 16:21 Urine Protein <15 mg/dl mg/dL (Negative) 03/27/18 16:21 Urine Glucose (UA) Neg mg/dL (Negative) 03/27/18 16:21 Urine Ketones Neg mg/dL (Negative) 03/27/18 16:21 Urine Blood Neg (Negative) 03/27/18 16:21 Urine Nitrite Neg (Negative) 03/27/18 16:21 Urine Bilirubin Neg (Negative) 03/27/18 16:21 Urine Urobilinogen < 2.0 mg/dL (<2.0) 03/27/18 16:21 Ur Leukocyte Esterase Tr (Negative) 03/27/18 16:21 Urine WBC (Auto) 6.0 /HPF (0.0-6.0) 03/27/18 16:21 Urine RBC (Auto) 1.0 /HPF (0.0-6.0) 03/27/18 16:21 U Epithel Cells (Auto) 2.0 /HPF (0-13.0) 03/27/18 16:21 Urine Mucus Few /HPF 03/27/18 16:21
[2018-03-28] MEDS ORDERED: ZOLOFT PO SCH (18:00)
[2018-03-28] MEDS: XARELTO PO SCH (18:00)
--- NOTE | 2018-03-28 18:09 | Discharge Summary ---
Providers - Providers Date of Admission: 03/27/18 15:19 Attending physician: YFN FRANCES MD Primary care physician: ANNALISA CONTRERAS MD Hospitalization Condition: Stable Hospital course: 72F who pw presyncope,after having loose stools pmh htn, cva with L residual weakness TIA ruled out, patient did not have any focal findings, clinical presentation inconsistent with TIA Presyncope; occurred after loose stools, likely vasovagal and due to dehydration cardiac Afib with hypercoaguable state, HTN, HLD, hx of CVA cont home meds, fully anticoagulated with xarelto GERD; cont PPI Disposition: - TO HOME OR SELFCARE Time spent for discharge: 33 minutes Core Measure Documentation - Palliative Care Palliative Care/ Comfort Measures: Not Applicable - Core Measures Any of the following diagnoses?: none Exam - Physical Exam Narrative exam: General.: Appears well, no distress, nontoxic HEENT: Moist mucous membranes, extraocular muscles intact, no lymphadenopathy Neck: supple Cardiac: S1-S2 heard Lungs: clear to auscultation bilaterally Abdomen: soft , nontender, nondistended, bowel sounds positive Extremities: no edema clubbing or cyanosis Skin: no rash or lesions Neurologic: left hemiparesis, mild Psych: appropriate behavior, appropriate mood, corporative, judgment intact - Constitutional Vitals: Temp Pulse Resp BP Pulse Ox 98.7 F 79 16 120/61 95 03/28/18 14:35 03/28/18 14:35 03/28/18 16:17 03/28/18 14:35 03/28/18 14:35 Plan Follow up with: ANNALISA CONTRERAS MD [Primary Care Provider] - 3-5 Days
[2018-03-28 21:12] VITALS: BP 136/65
[2018-03-28] MEDS: LOPRESSOR PO SCH (23:07)
[2018-03-28] MEDS: SODIUM CHLORIDE FLUSH SYRINGE 10 ML IV SCH (23:08)
[2018-03-29] MEDS: SODIUM CHLORIDE FLUSH SYRINGE 10 ML IV SCH (00:22)
[2018-03-29] MEDS: LOPRESSOR PO SCH (00:24)
--- NOTE | 2018-03-29 01:09 | Treadmill Report ---
THALLIUM STRESS TEST LEFT VENTRICLE: Left ventricular chamber size is within normal spread. Perfusion study demonstrates homogeneous uptake of the tracer in all segments, no significant perfusion defects identified. Gated analysis demonstrates normal left ventricular systolic function with left ventricular ejection fraction 73%. CONCLUSION: Normal myocardial perfusion study. JOB# [id number] CA/NTS
== END 2018-03-29 06:15 | disposition home or self-care (01) | DRG 315 ==
LOC: ED 11:27 → 2B-ACE 15:19
PROVIDERS: ADMIT Internal Medicine; ATTEND Internal Medicine
PROC: 3E0234Z Introduction of Serum, Toxoid and Vaccine into Muscle, Percutaneous Approach (ICD-10-PCS; principal; 2018-03-28)
DX: I95.9 Hypotension, unspecified (principal); I69.354 Hemiplegia and hemiparesis following cerebral infarction affecting left non-dominant side; D68.69 Other thrombophilia; E86.0 Dehydration; R56.9 Unspecified convulsions; E78.00 Pure hypercholesterolemia, unspecified; E78.5 Hyperlipidemia, unspecified; I48.91 Unspecified atrial fibrillation; I10 Essential (primary) hypertension; F41.9 Anxiety disorder, unspecified; Z90.49 Acquired absence of other specified parts of digestive tract; Z90.710 Acquired absence of both cervix and uterus; Z82.49 Family history of ischemic heart disease and other diseases of the circulatory system; Z79.01 Long term (current) use of anticoagulants; Z23 Encounter for immunization
CPT/HCPCS: 36415; 70450; 71045; 71275; 74177; 78452; 80048; 80053; 80074; 81001; 82140; 82550; 82553; 83036; 83735; 83880; 84484; 85007; 85025; 85379; 85610; 85730; 87040; 87086; 87116; 90732; 93005; 93010; 93017; 93306; 93880; 96361; 96365; A9270-GY; A9502; J1953; J2785; J7030; Q9967

== ENCOUNTER 2019-01-31 06:56 | Emergency (ER) | payer MEDICARE ==
--- NOTE | 2019-01-31 07:12 | Emergency Department Report ---
ED General Adult HPI - General Stated complaint: FALL Time Seen by Provider: 01/31/19 07:09 - Related Data Home Medications Medication Instructions Recorded Confirmed Last Taken AtorvaSTATin 20 mg PO DAILY 03/27/18 03/27/18 03/27/18 Folic Acid 1 mg PO DAILY 03/27/18 03/27/18 03/27/18 HCTZ 25 mg PO DAILY 03/27/18 03/27/18 03/27/18 ISOSORBIDE MONOnitrate 60 mg PO DAILY 03/27/18 03/27/18 03/27/18 Metoprolol 25 mg PO BID 03/27/18 03/27/18 03/27/18 Omeprazole 40 mg PO DAILY 03/27/18 03/27/18 03/27/18 Pantoprazole 40 mg PO DAILY 03/27/18 03/27/18 03/27/18 Triamterene 37.5 mg PO DAILY 03/27/18 03/27/18 03/27/18 Xarelto 20 mg PO DAILY 03/27/18 03/27/18 03/27/18 Sertraline [Zoloft] 50 mg PO QDAY 03/28/18 03/28/18 03/27/18 10:00 Allergies Allergy/AdvReac Type Severity Reaction Status Date / Time No Known Allergies Allergy Unverified 01/28/18 14:39 ED Review of Systems ROS: Stated complaint: FALL Other details as noted in HPI Constitutional: denies: chills, fever Eyes: denies: eye pain, eye discharge, vision change ENT: other (Head injury). denies: ear pain, throat pain Respiratory: denies: cough, shortness of breath, wheezing Cardiovascular: denies: chest pain, palpitations Endocrine: no symptoms reported Gastrointestinal: denies: abdominal pain, nausea, diarrhea Genitourinary: denies: urgency, dysuria, discharge Musculoskeletal: denies: back pain, joint swelling, arthralgia Skin: denies: rash, lesions Neurological: denies: headache, weakness, paresthesias Psychiatric: denies: anxiety, depression Hematological/Lymphatic: denies: easy bleeding, easy bruising ED Past Medical Hx - Past Medical History Hx Hypertension: Yes Hx CVA: Yes Additional medical history: CVA x2, Afib. anxiety, high cholesterol - Surgical History Hx Cholecystectomy: Yes Additional Surgical History: hysterectomy, esophageal - Social History Smoking Status: Never Smoker Substance Use Type: None - Medications Home Medications: Home Medications Medication Instructions Recorded Confirmed Last Taken Type AtorvaSTATin 20 mg PO DAILY 03/27/18 03/27/18 03/27/18 History Folic Acid 1 mg PO DAILY 03/27/18 03/27/18 03/27/18 History HCTZ 25 mg PO DAILY 03/27/18 03/27/18 03/27/18 History ISOSORBIDE MONOnitrate 60 mg PO DAILY 03/27/18 03/27/18 03/27/18 History Metoprolol 25 mg PO BID 03/27/18 03/27/18 03/27/18 History Omeprazole 40 mg PO DAILY 03/27/18 03/27/18 03/27/18 History Pantoprazole 40 mg PO DAILY 03/27/18 03/27/18 03/27/18 History Triamterene 37.5 mg PO DAILY 03/27/18 03/27/18 03/27/18 History Xarelto 20 mg PO DAILY 03/27/18 03/27/18 03/27/18 History Sertraline [Zoloft] 50 mg PO QDAY 03/28/18 03/28/18 03/27/18 10:00 History Critical care attestation.: If time is entered above; I have spent that time in minutes in the direct care of this critically ill patient, excluding procedure time. ED Disposition Condition: Stable
--- NOTE | 2019-01-31 07:43 | Emergency Department Report ---
ED Head Trauma HPI - General Stated complaint: FALL Time Seen by Provider: 01/31/19 07:09 Source: patient, family, EMS Mode of arrival: Stretcher Limitations: Physical Limitation - History of Present Illness Initial comments: The patient presents to the emergency department via EMS for fall out of bed. Patient states that while asleep she rolled out of the bed striking her head on the dresser which resulted in a laceration to a head. Patient is on Xeralto for previous CVA and Afib. Patient denies any neck or back pain. MD Complaint: head injury -: Sudden Mechanism of Injury: other (rolled out of bed) Location: temporal Loss of Consciousness: no Previous Trauma to this Area: No Place: home Radiation: none Severity: mild Severity scale (0 -10): 1 Quality: dull Consistency: constant Provoking factors: none known Other Injuries: laceration Context: other (on anticoagulation) Associated Symptoms: denies other symptoms - Related Data Home Medications Medication Instructions Recorded Confirmed Last Taken AtorvaSTATin 20 mg PO DAILY 03/27/18 03/27/18 03/27/18 Folic Acid 1 mg PO DAILY 03/27/18 03/27/18 03/27/18 HCTZ 25 mg PO DAILY 03/27/18 03/27/18 03/27/18 ISOSORBIDE MONOnitrate 60 mg PO DAILY 03/27/18 03/27/18 03/27/18 Metoprolol 25 mg PO BID 03/27/18 03/27/18 03/27/18 Omeprazole 40 mg PO DAILY 03/27/18 03/27/18 03/27/18 Pantoprazole 40 mg PO DAILY 03/27/18 03/27/18 03/27/18 Triamterene 37.5 mg PO DAILY 03/27/18 03/27/18 03/27/18 Xarelto 20 mg PO DAILY 03/27/18 03/27/18 03/27/18 Sertraline [Zoloft] 50 mg PO QDAY 03/28/18 03/28/18 03/27/18 10:00 Allergies/Adverse reactions: Allergies Allergy/AdvReac Type Severity Reaction Status Date / Time No Known Allergies Allergy Unverified 01/28/18 14:39 ED Review of Systems ROS: Stated complaint: FALL Other details as noted in HPI Constitutional: denies: chills, fever Eyes: denies: eye pain, eye discharge, vision change ENT: other (Head injury). denies: ear pain, throat pain Respiratory: denies: cough, shortness of breath, wheezing Cardiovascular: denies: chest pain, palpitations Endocrine: no symptoms reported Gastrointestinal: denies: abdominal pain, nausea, diarrhea Genitourinary: denies: urgency, dysuria, discharge Musculoskeletal: denies: back pain, joint swelling, arthralgia Skin: denies: rash, lesions Neurological: denies: headache, weakness, paresthesias Psychiatric: denies: anxiety, depression Hematological/Lymphatic: denies: easy bleeding, easy bruising ED Past Medical Hx - Past Medical History Hx Hypertension: Yes Hx CVA: Yes Additional medical history: CVA x2, Afib. anxiety, high cholesterol - Surgical History Hx Cholecystectomy: Yes Additional Surgical History: hysterectomy, esophageal - Social History Smoking Status: Never Smoker - Medications Home Medications: Home Medications Medication Instructions Recorded Confirmed Last Taken Type AtorvaSTATin 20 mg PO DAILY 03/27/18 03/27/18 03/27/18 History Folic Acid 1 mg PO DAILY 03/27/18 03/27/18 03/27/18 History HCTZ 25 mg PO DAILY 03/27/18 03/27/18 03/27/18 History ISOSORBIDE MONOnitrate 60 mg PO DAILY 03/27/18 03/27/18 03/27/18 History Metoprolol 25 mg PO BID 03/27/18 03/27/18 03/27/18 History Omeprazole 40 mg PO DAILY 03/27/18 03/27/18 03/27/18 History Pantoprazole 40 mg PO DAILY 03/27/18 03/27/18 03/27/18 History Triamterene 37.5 mg PO DAILY 03/27/18 03/27/18 03/27/18 History Xarelto 20 mg PO DAILY 03/27/18 03/27/18 03/27/18 History Sertraline [Zoloft] 50 mg PO QDAY 03/28/18 03/28/18 03/27/18 10:00 History ED Physical Exam - General Limitations: Physical Limitation General appearance: alert, in no apparent distress - Head Head exam: Present: normocephalic, other (2 cm laceration to the left lateral supraorbital region) - Eye Eye exam: Present: normal appearance - ENT ENT exam: Present: mucous membranes moist, other (no midline C-spine tenderness to palpation) - Neck Neck exam: Present: normal inspection - Respiratory Respiratory exam: Present: normal lung sounds bilaterally. Absent: respiratory distress - Cardiovascular Cardiovascular Exam: Present: regular rate, normal rhythm. Absent: systolic murmur, diastolic murmur, rubs, gallop - GI/Abdominal GI/Abdominal exam: Present: soft, normal bowel sounds - Extremities Exam Extremities exam: Present: normal inspection - Back Exam Back exam: Present: normal inspection - Neurological Exam Neurological exam: Present: alert, oriented X3, CN II-XII intact. Absent: motor sensory deficit - Psychiatric Psychiatric exam: Present: normal affect, normal mood - Skin Skin exam: Present: warm, dry, intact, normal color. Absent: rash ED Course Vital Signs 01/31/19 01/31/19 01/31/19 07:13 07:16 09:21 Temperature 98.6 F Pulse Rate 82 78 Respiratory 15 16 18 Rate Blood Pressure 140/96 147/76 [Left] O2 Sat by Pulse 95 97 98 Oximetry - Laceration /Wound Repair Left Head Wound Location: head Wound's Depth, Shape: superficial (just below bag is) Irrigated w/ Saline (ccs): 100 Betadine Prep?: Yes ( as were) Anesthesia: 1% Lidocaine Wound Repaired With: sutures Suture Size/Type: 4:0 Number of Sutures: 2 Layer Closure?: No Sterile Dressing Applied?: Yes - Radiology Data Radiology results: report reviewed - Medical Decision Making On repeat exam and a possibly 9:25 AM the patient complains of neck pain which she initially denied. There is now midline C-spine tenderness on exam. Patient placed immediately in c-collar and CT of cervical spine will be obtained Critical care attestation.: If time is entered above; I have spent that time in minutes in the direct care of this critically ill patient, excluding procedure time. ED Disposition Clinical Impression: Cervical strain, acute, Acute head injury, Laceration Disposition: - TO HOME OR SELFCARE Is pt being admited?: No Does the pt Need Aspirin: No Condition: Stable Instructions: Cervical Spine Strain (ED), Minor Head Injury (ED), Laceration (ED) Additional Instructions: Return if worse Referrals: JULIET LE MD [Primary Care Provider] - 3-5 Days [facility] [Provider Group] - 3-5 Days [facility] [Provider Group] - 3-5 Days Time of Disposition: 10:49
[2019-01-31] MEDS ORDERED: XYLOCAINE 1% 20 mL INFILTRATI ONE (08:59)
--- NOTE | 2019-01-31 09:03 | Cat Scan Report ---
CT head without contrast INDICATION : head injury.. TECHNIQUE: Axial imaging performed from the skull apex through the skull base without the use of con trast. COMPARISON: 07/05/2018 FINDINGS: Parenchyma: No acute intracranial hemorrhage or parenchymal abnormality. Moderate bilateral diffuse deep white matter confluent hypodensities. No suspicious density. Ventricles: Ventricles are normal in size and appear symmetric. Soft tissues: Soft tissues including the orbits appear normal. Bones: No acute osseous abnormality. Sinuses: Sinuses and mastoid air cells are clear. IMPRESSION: No acute abnormality. Stable chronic white matter microangiopathy. Signer Name: Keanu Bearden MD Signed: 01/31/2019 8:59 AM Workstation Name: [id number]
--- NOTE | 2019-01-31 10:27 | Cat Scan Report ---
CT CERVICAL SPINE WITHOUT CONTRAST INDICATION: MAIN: Pt states fell out of bed this morning has SANDERS and neck pain, h/o stroke; pt curre ntly on blood thinners.. TECHNIQUE: Axial imaging performed through the cervical without the use of contrast. Sagittal and c oronal reconstructed images were also reviewed. All CT scans at this location are performed using CT dose reduction for ALARA by means of automated exposure control. COMPARISON: None FINDINGS: Alignment: Spinal alignment is normal. Bones: There is no acute osseous abnormality. Mild to moderate discogenic DJD is identified at C4-5 , C5-6 and C6-7. Mild left neural foraminal narrowing is suspected at C4-5 and C6-7. No evidence for central canal stenosis. Soft tissues: No acute or significant incidental soft tissue abnormality. Additional findings: The upper esophagus is dilated and contains a fluid level. IMPRESSION: No acute injury is identified. Cervical spondylosis as described. Signer Name: Edson Branch Jr, MD Signed: 01/31/2019 10:22 AM Workstation Name: [id number]
[2019-01-31 11:11] VITALS: BP 151/72
== END 2019-01-31 11:14 | disposition home or self-care (01) ==
LOC: ED 06:56
DX: S01.112A Laceration without foreign body of left eyelid and periocular area, initial encounter (principal); S16.1XXA Strain of muscle, fascia and tendon at neck level, initial encounter; I10 Essential (primary) hypertension; I48.91 Unspecified atrial fibrillation; F41.9 Anxiety disorder, unspecified; E78.00 Pure hypercholesterolemia, unspecified; Z86.73 Personal history of transient ischemic attack (TIA), and cerebral infarction without residual deficits; Z90.710 Acquired absence of both cervix and uterus; Z90.49 Acquired absence of other specified parts of digestive tract; Z79.899 Other long term (current) drug therapy; W06.XXXA Fall from bed, initial encounter; Y93.89 Activity, other specified; Y92.098 Other place in other non-institutional residence as the place of occurrence of the external cause; Y99.8 Other external cause status
CPT/HCPCS: 70450; 72125

== ENCOUNTER 2019-07-03 17:39 | Emergency (ER) | payer MEDICARE ==
--- NOTE | 2019-07-03 19:16 | XRay Report ---
CHEST 1 VIEW INDICATION / CLINICAL INFORMATION: weakness. COMPARISON: None available. FINDINGS: SUPPORT DEVICES: None. HEART / MEDIASTINUM: Heart size is normal. Esophagus appears to be distended with gas. LUNGS / PLEURA: No significant pulmonary or pleural abnormality. No pneumothorax. ADDITIONAL FINDINGS: Small sclerotic density is identified in the proximal humeral shaft. IMPRESSION: 1. No acute findings. 2. Possibly dilated esophagus. Signer Name: Truman Guzmán MD Signed: 07/03/2019 7:11 PM Workstation Name: [id number]
[2019-07-03 19:40] LABS: INR 1.04 (0.87-1.13)
[2019-07-03 19:41] LABS: Partial Thromboplastin Time 39.2 Sec. (24.2-36.6)
--- NOTE | 2019-07-03 19:42 | Emergency Department Report ---
ED General Adult HPI - General Chief complaint: Medical Clearance Stated complaint: WEAKNESS Time Seen by Provider: 07/03/19 18:41 Source: patient, family, EMS Mode of arrival: Stretcher Limitations: No Limitations - History of Present Illness Initial comments: 74-year-old female with history of hypertension, CVA, presents to ED with generalized weakness. Daughter states she came home from work and found that the patient had mistakenly had a bowel movement on herself. The patient had already taken a bath and cleaned herself up by the time her daughter came home. She states patient was attempting to clean the feces as well. When the daughter arrived at home however, patient was sitting on the bathroom floor. Patient told her daughter that she cannot get up. However, when daughter attempted to help the patient, patient refused the daughter's help and then stood up on her own. After standing, daughter states patient had a blank stare on her face that lasted approx 1 min. Afterward patient immediately returned to her baseline. Daughter then decided to bring patient to the ER. Daughter reports patient rarely walks lately due to pain in her feet that has been ongoing. Daughter states patient is becoming more difficult. Lately patient has also been refusing to take her medications, refusing to go [facility], and not eating well. Patient told her daughter that she was to return to [place], where she previously lived. Daughter states usually the patient may be depressed. Patient has no complaints except for foot pain. Denies any other pain, fever, cough, N/V/D. -: This evening Consistency: now resolved Improves with: none Worsens with: none Associated Symptoms: loss of appetite, weakness (generalized). denies: confusion, chest pain, cough, fever/chills, headaches, nausea/vomiting, shortness of breath Treatments Prior to Arrival: none - Related Data Home Medications Medication Instructions Recorded Confirmed Last Taken AtorvaSTATin 20 mg PO DAILY 03/27/18 03/27/18 03/27/18 Folic Acid 1 mg PO DAILY 03/27/18 03/27/18 03/27/18 HCTZ 25 mg PO DAILY 03/27/18 03/27/18 03/27/18 ISOSORBIDE MONOnitrate 60 mg PO DAILY 03/27/18 03/27/18 03/27/18 Metoprolol 25 mg PO BID 0903/27/18 03/27/18 Omeprazole 40 mg PO DAILY 03/27/18 03/27/18 03/27/18 Pantoprazole 40 mg PO DAILY 03/27/18 03/27/18 03/27/18 Triamterene 37.5 mg PO DAILY 03/27/18 03/27/18 03/27/18 Xarelto 20 mg PO DAILY 03/27/18 03/27/18 03/27/18 Sertraline [Zoloft] 50 mg PO QDAY 03/28/18 03/28/18 03/27/18 10:00 Allergies Allergy/AdvReac Type Severity Reaction Status Date / Time No Known Allergies Allergy Unverified 01/28/18 14:39 ED Review of Systems ROS: Stated complaint: WEAKNESS Other details as noted in HPI Comment: All other systems reviewed and negative Constitutional: denies: chills, fever Respiratory: denies: cough, shortness of breath Cardiovascular: denies: chest pain Gastrointestinal: denies: abdominal pain, nausea, vomiting, diarrhea Musculoskeletal: other (reports chronic foot pain) Neurological: denies: headache ED Past Medical Hx - Past Medical History Previous Medical History?: Yes Hx Hypertension: Yes Hx CVA: Yes Additional medical history: CVA x2, Afib. anxiety, high cholesterol - Surgical History Past Surgical History?: Yes Hx Cholecystectomy: Yes Additional Surgical History: hysterectomy, esophageal - Social History Smoking Status: Never Smoker Substance Use Type: None - Medications Home Medications: Home Medications Medication Instructions Recorded Confirmed Last Taken Type AtorvaSTATin 20 mg PO DAILY 03/27/18 03/27/18 03/27/18 History Folic Acid 1 mg PO DAILY 03/27/18 03/27/18 03/27/18 History HCTZ 25 mg PO DAILY 03/27/18 03/27/18 03/27/18 History ISOSORBIDE MONOnitrate 60 mg PO DAILY 03/27/18 03/27/18 03/27/18 History Metoprolol 25 mg PO BID 03/27/18 03/27/18 03/27/18 History Omeprazole 40 mg PO DAILY 03/27/18 03/27/18 03/27/18 History Pantoprazole 40 mg PO DAILY 03/27/18 03/27/18 03/27/18 History Triamterene 37.5 mg PO DAILY 0903/27/18 03/27/18 History Xarelto 20 mg PO DAILY 03/27/18 03/27/18 03/27/18 History Sertraline [Zoloft] 50 mg PO QDAY 03/28/18 03/28/18 03/27/18 10:00 History ED Physical Exam - General Limitations: No Limitations General appearance: alert, in no apparent distress - Head Head exam: Present: atraumatic, normocephalic - Eye Eye exam: Present: normal appearance - ENT ENT exam: Present: mucous membranes moist - Neck Neck exam: Present: normal inspection - Respiratory Respiratory exam: Present: normal lung sounds bilaterally. Absent: respiratory distress - Cardiovascular Cardiovascular Exam: Present: regular rate, normal rhythm - GI/Abdominal GI/Abdominal exam: Present: soft. Absent: distended, tenderness - Extremities Exam Extremities exam: Present: other (left arm contracture) - Neurological Exam Neurological exam: Present: alert, oriented X3, motor sensory deficit (baseline left arm ) - Psychiatric Psychiatric exam: Present: normal affect, normal mood - Skin Skin exam: Present: warm, dry, intact, normal color ED Course Vital Signs 07/03/19 07/03/19 07/03/19 17:40 18:30 19:00 Temperature Pulse Rate 92 H 90 80 Respiratory 20 30 H 24 Rate Blood Pressure 178/94 179/94 178/92 O2 Sat by Pulse 98 96 Oximetry 07/03/19 07/03/19 07/03/19 19:15 19:30 19:45 Temperature Pulse Rate 82 86 90 Respiratory 20 23 27 H Rate Blood Pressure 174/90 167/95 O2 Sat by Pulse 97 97 97 Oximetry 07/03/19 07/03/19 07/03/19 20:00 21:25 22:15 Temperature 98.3 F Pulse Rate 94 H 102 H Respiratory 25 H 24 Rate Blood Pressure 167/95 135/73 O2 Sat by Pulse 93 Oximetry ED Medical Decision Making - Lab Data Result diagrams: 07/03/19 21:00 07/03/19 21:00 - EKG Data -: EKG Interpreted by Fl EKG shows normal: sinus rhythm, axis, QRS complexes, ST-T waves Rate: normal - EKG Data Interpretation: no acute changes, other (prolonged QT) - Radiology Data Radiology results: report reviewed, image reviewed - Medical Decision Making Workup was unremarkable. Labs are normal, except for mild hypokalemia. Vital signs are normal. Chest x-ray and head CT are unremarkable. Patient is alert and oriented x3, at her baseline per daughter. Patient does not require admission at this time. PCP follow-up advised. Return precautions given. - Differential Diagnosis UTI, pneumonia, CVA, electrolyte abnormality, dementia Critical care attestation.: If time is entered above; I have spent that time in minutes in the direct care of this critically ill patient, excluding procedure time. ED Disposition Clinical Impression: Hypokalemia, Generalized weakness Disposition: DC-01 TO HOME OR SELFCARE Is pt being admited?: No Condition: Stable Instructions: Hypokalemia (ED), Weakness (ED) Referrals: JULIET LE MD [Primary Care Provider] - 3-5 Days Time of Disposition: 22:37
[2019-07-03 19:54] LABS: Alanine Aminotransferase 15 units/L (7-56)
[2019-07-03 19:56] LABS: Bilirubin,Urine NEG (Negative); Blood,Urine NEG (Negative); Color,Urine Straw (Yellow); Mucus,Urine FEW /HPF; Protein,Urine <15 mg/dL mg/dL (Negative); Urobilinogen,Urine < 2.0 mg/dL (<2.0); WBC,Urine < 1.0 /HPF (0.0-6.0)
[2019-07-03 20:02] LABS: Bilirubin,Direct < 0.2 mg/dL (0-0.2)
--- NOTE | 2019-07-03 20:40 | Cat Scan Report ---
NONENHANCED CT SCAN OF THE HEAD: INDICATION / CLINICAL INFORMATION: 74 years Female; altered mental status. TECHNIQUE: Routine CT head without contrast. All CT scans at this location are performed using CT dos e reduction for ALARA by means of automated exposure control. COMPARISON: CT scan of the brain from January [id number] and 07/05/2018. FINDINGS: BRAIN / INTRACRANIAL CONTENTS: No acute hemorrhage, mass effect, midline shift, hydrocephalus, or acu te, large territorial infarct. Confluent extensive periventricular and deep hemispheric low density s een in the white matter laterally symmetrically. These are also extending towards the subcortical whi te matter in the frontal lobes. Temporal lobe white matter and external capsule are spared. Probably these are due to subcortical arteriosclerotic encephalopathy, if there is history of hypertension. Th kiah findings remain unchanged. CRANIOCERVICAL JUNCTION: No significant abnormality. ORBITS: No significant abnormality of visualized orbits. SINUSES / MASTOIDS: No significant abnormality of the visualized paranasal sinuses or mastoid air rayna ls. ADDITIONAL FINDINGS: None. IMPRESSION: I do not see an acute parenchymal lesion in the brain. CT findings remain unchanged since 01/31/2019 Signer Name: Leonides Alatorre MD Signed: 07/03/2019 8:35 PM Workstation Name: [id number]
[2019-07-03 21:48] LABS: Hematocrit 43.6 % (30.3-42.9); Mean Corpuscular HGB Conc 32 % (30-34); Mean Corpuscular Volume 91 fl (79-97); Platelet Count 324 K/mm3 (140-440); Red Blood Count 4.78 M/mm3 (3.65-5.03); Red Cell Distribution Width 16.1 % (13.2-15.2)
[2019-07-03 22:16] VITALS: BP 135/73
[2019-07-03 22:24] LABS: BUN/Creatinine Ratio 23; Blood Urea Nitrogen 9 mg/dL (7-17); Calcium 9.1 mg/dL (8.4-10.2); Hemolysis Index 18
[2019-07-03] MEDS ORDERED: POTASSIUM CHLORIDE ER 20 MEQ TAB PO ONE (22:35)
== END 2019-07-03 23:00 | disposition home or self-care (01) ==
LOC: ED 17:39
DX: R53.1 Weakness (principal); E87.6 Hypokalemia; G89.29 Other chronic pain; M79.672 Pain in left foot; M79.671 Pain in right foot; I10 Essential (primary) hypertension; F41.9 Anxiety disorder, unspecified; E78.00 Pure hypercholesterolemia, unspecified; Z86.73 Personal history of transient ischemic attack (TIA), and cerebral infarction without residual deficits; Z90.49 Acquired absence of other specified parts of digestive tract; Z90.710 Acquired absence of both cervix and uterus; Z98.890 Other specified postprocedural states; Z79.899 Other long term (current) drug therapy
CPT/HCPCS: 36415; 70450; 71045; 80048; 80076; 81001; 84484; 85025; 85610; 85730; 93005; 93010